=== PATIENT | male | born 1965 | race Caucasian/White ===

== ENCOUNTER 2020-11-16 20:27 | Emergency (ER) | payer OTHER, SELFPAY ==
[2020-11-16 20:39] VITALS: BP 148/70; PULSE 83; RESP 17; TEMP 37.2; O2SAT 98
--- NOTE | 2020-11-16 20:59 | ED.GENADULT ---
HPI - General Adult General Chief complaint: Head Injury Stated complaint: facial injury Time Seen by Provider: 11/16/20 20:45 Source: patient Mode of arrival: ambulatory Limitations: no limitations History of Present Illness HPI narrative: Patient presents with chief complaint of facial lacerations abrasions and contusions after running into a garden planter while trying to jeanna his intoxicated swelling. Patient reports having small lacerations and abrasions and bruises to his face. He reports some of them were bleeding. Patient denies changes in vision or hearing. Patient denies loss of consciousness, headache, nausea, vomiting, diarrhea or any neurological is. Related Data Home Medications Medication Instructions Recorded Confirmed lisinopril 11/16/20 rosuvastatin mg 11/16/20 11/16/20 Allergies Allergy/AdvReac Type Severity Reaction Status Date / Time aspirin Allergy Intermediate ITCHINESS Verified 11/16/20 20:38 ibuprofen AdvReac Intermediate ITCHINESS Verified 11/16/20 20:38 Review of Systems Review of Systems: CONSTITUTIONAL: Denies fever, chills, or sweats. EYES: Denies visual changes, redness, or discharge. ENT: Denies rhinorrhea, congestion, sore throat, or otalgia. CARDIOVASCULAR: Denies chest pain, palpitations, or edema. RESPIRATORY: Denies cough or dyspnea. GASTROINTESTINAL: Denies abdominal pain, nausea, vomiting, or diarrhea. GENITOURINARY: Denies dysuria or hematuria. SKIN: Reports abrasions, lacerations, contusion denies rash or itching. MUSCULOSKELETAL: Denies back pain, joint pain, or myalgia. NEUROLOGIC: Denies headache, numbness, dizziness, or weakness. PSYCHIATRIC: Denies anxiety or depression. [facility] Social History Social History Gender identity (if verbalized by the patient): Male Exam Narrative: GENERAL: Well-appearing, well-nourished, and in no acute distress. HEAD: Normocephalic. FACE: Centimeter laceration to the lateral aspect of the right brow that is already approximated and not bleeding. 1 cm laceration under lower Left eyelid that is already approximated and not bleeding. Abrasion to corner of the left eye. Not presently bleeding. Not gaping. EYES: PERRLA and EOMI. subconjunctival hemorrhaging to the medial aspect of the left eye and the lateral aspect of the right eye. Contusion under the left eyelid. Vision intact. ENT: Nares clear, no rhinorrhea or epistaxis. Mucous membranes moist. CHEST: Clear to auscultation. No respiratory distress. No wheezes rales or rhonchi HEART: Regular rate and rhythm. EXTREMITIES: Normal range of motion. No edema. SKIN: See face. Warm, dry, no rash. NEURO: No focal deficits. Alert and oriented x3. PSYCH: Normal mood and affect. Course Vital Signs Vital signs: Vital Signs Temperature 98.9 F 11/16/20 20:39 Pulse Rate 83 11/16/20 20:39 Respiratory Rate 17 11/16/20 20:39 Blood Pressure 148/70 H 11/16/20 20:39 Pulse Oximetry 98 11/16/20 20:39 Temperature 98.9 F 11/16/20 20:39 Pulse Rate 83 11/16/20 20:39 Respiratory Rate 17 11/16/20 20:39 Blood Pressure 148/70 H 11/16/20 20:39 Pulse Oximetry 98 11/16/20 20:39 Medical Decision Making [facility] Narrative Medical decision making narrative: Patient laceration abrasions are all well approximated and not gaping. There is no need for suturing or skin glue. Patient has been instructed to keep wounds clean and wash with antibacterial soap and apply antibacterial ointment. Patient will be given antibiotic eyedrop as he has abrasions close around his eyes and we want to prevent infection. Patient has been instructed to apply cool compress to the swellings and bruising under his left eyelid. Patient denies headache or loss of consciousness. Patient denies any neurological deficits patient does not appear to have any neurological deficits. Patient states that he will follow-up with his eyedotter tomorrow for reevaluation. Patient instructed to return to [facility]
[2020-11-16] MEDS: TETANUS,DIPHTHERIA,AC PERTUSSIS ADULT (0.5 ML) BOOSTRIX IM (21:17)
== END 2020-11-16 22:03 | disposition home or self-care (01) ==
PROVIDERS: Emergency Provider Emergency Medicine; PCP Family Medicine Sports Medicine
DX: S01.111A Laceration without foreign body of right eyelid and periocular area, initial encounter (principal); S01.112A Laceration without foreign body of left eyelid and periocular area, initial encounter; H11.33 Conjunctival hemorrhage, bilateral; Z23 Encounter for immunization; W22.8XXA Striking against or struck by other objects, initial encounter
CPT/HCPCS: 90471; 90715; 99283

== ENCOUNTER 2024-03-28 08:28 | Outpatient (CLI) | payer OTHER, SELFPAY ==
[2024-03-28 19:19] LABS: Hemoglobin 16.4 g/dL (14.0-18.0); Mean Corpuscular HGB Conc 34.2 g/dl (32-36); Mean Corpuscular Hemoglobin 33.1 pg (26-34); Mean Platelet Volume 11.5 fl (7.4-10.4); Platelet Count Result 148 k/mm3 (150-375); Red Blood Count 4.95 M/mm3 (4.6-6.20); Red Cell Distribution Width 12.2 % (11.5-14.5); White Blood Count 5.1 K/mm3 (4.5-10.0)
[2024-03-28 20:38] LABS: Alanine Aminotransferase 25 U/L (6-50); Albumin Level 4.3 g/dL (3.5-5.1); Alkaline Phosphatase 56 U/L (38-126); Anion Gap 5 mmol/L (4-12); Aspartate Amino Transferase 36 U/L (17-59); Bilirubin,Total 0.8 mg/dL (0.2-1.3); Blood Urea Nitrogen 13 mg/dL (9-20); Calcium 9.3 mg/dL (8.4-10.2); Carbon Dioxide 24 mmol/L (22-30); Chloride 108 mmol/L (98-107); Estimated Glomerular Filt Rate > 60; Glucose 102 mg/dL (65-110); Potassium 4.4 mmol/L (3.4-5.0); Sodium 137 mmol/L (137-145)
== END 2024-03-28 08:29 | disposition home or self-care (01) ==
LOC: ANHBWCLAB 08:29
PROVIDERS: PCP Family Medicine Sports Medicine; Visit Provider Family Medicine
DX: Z00.00 Encounter for general adult medical examination without abnormal findings (principal); N52.9 Male erectile dysfunction, unspecified
CPT/HCPCS: 36415; 80053; 84402; 84403; 85027

== ENCOUNTER 2024-07-25 07:33 | Outpatient (CLI) | payer OTHER, SELFPAY ==
[2024-07-29 15:14] LABS: Testosterone Total 280 ng/dL (250-1100)
== END 2024-07-25 07:34 | disposition home or self-care (01) ==
LOC: ANHBWCLAB 07:36
PROVIDERS: PCP Family Medicine; Visit Provider Family Medicine
DX: R68.82 Decreased libido (principal); N52.9 Male erectile dysfunction, unspecified; R79.89 Other specified abnormal findings of blood chemistry
CPT/HCPCS: 36415; 84403